=== PATIENT | female | born 1985 | race American Indian/Alaskan Native ===

== ENCOUNTER 2017-12-21 10:51 | Emergency (ER) | payer MEDICAID ==
[2017-12-21 11:59] LABS: Bilirubin,Urine NEG (Negative); Blood,Urine MOD (Negative); Color,Urine Yellow (Yellow); Mucus,Urine FEW /HPF; Protein,Urine <15 mg/dL mg/dL (Negative); Urobilinogen,Urine < 2.0 mg/dL (<2.0)
[2017-12-21 12:00] LABS: HCG Qualitative,Urine Negative (Negative)
--- NOTE | 2017-12-21 13:43 | Emergency Department Report ---
ED Female HPI - General Chief complaint: Urogenital-Female Stated complaint: VAGINAL BLEEDING/ Source: patient Mode of arrival: Ambulatory Limitations: No Limitations - History of Present Illness Initial comments: 32-year-old female (denies hypertension as per previous workup and she has a hx of psychosis as per medical record review) presents to the Hospital complains with concerns of . Patient had a menstrual cycle at the end of last month then had 2 days of bleeding starting December 18. early for her period. She states bleeding was heavy at that time. She has lower abdominal pain that felt like "something was moving around". Now all symptoms have resolved. Patient denies nausea, vomiting, dysuria, vaginal bleeding, or fever at this time. - Related Data Previous Rx's Medication Instructions Recorded Last Taken Type Triamter/Hctz 37.5-25 mg 1 tab PO QDAY #30 tablet 04/05/14 03/08/15 05:00 Rx [Maxzide-25] Allergies Allergy/AdvReac Type Severity Reaction Status Date / Time No Known Allergies Allergy Verified 03/26/15 18:30 ED Review of Systems ROS: Stated complaint: VAGINAL BLEEDING/ Other details as noted in HPI Comment: All other systems reviewed and negative ED Past Medical Hx - Past Medical History Previous Medical History?: Yes Hx Hypertension: Yes Hx Liver Disease: Yes - Surgical History Past Surgical History?: Yes Additional Surgical History: x 3. tubal ligation - Social History Smoking Status: Current Every Day Smoker Substance Use Type: Alcohol - Medications Home Medications: Home Medications Medication Instructions Recorded Confirmed Last Taken Type Triamter/Hctz 37.5-25 mg 1 tab PO QDAY #30 tablet 04/05/14 03/26/15 03/08/15 05: 00 Rx [Maxzide-25] ED Physical Exam - General Limitations: No Limitations - Other Other exam information: General: No limitations, patient is alert in no acute distress Head exam: Atraumatic, normocephalic Eyes exam: Normal appearance, pupils equal reactive to light, extraocular movements intact ENT: Moist mucous membrane, normal oropharynx Neck exam: Normal inspection, full range of motion, no meningismus nontender Respiratory exam: Clear to auscultation bilateral, no wheezes, rales, crackles Cardiovascular: Normal rate and rhythm, normal heart sounds Abdomen: Soft, nondistended, and nontender, with normal bowel sounds, no rebound, or guarding Extremity: Full range of motion normal inspection no deformity Back: Normal Inspection, full range of motion, no tenderness Neurologic: Alert, oriented x3, cranial nerves intact, no motor or sensory deficit Psychiatric: normal affect, normal mood Skin: Warm, dry, intact ED Course Vital Signs 12/21/17 12/21/17 11:22 13:40 Temperature 98.2 F 98.8 F Pulse Rate 113 H 96 H Respiratory 20 16 Rate Blood Pressure 150/97 O2 Sat by Pulse 99 99 Oximetry ED Medical Decision Making - Medical Decision Making patient is not having symptoms at this time She is not UA negative for infection Patient's blood pressure elevated and outpatient follow-up will be advised - Differential Diagnosis gas pain, UTI, , fibroids, ovarian cyst Critical Care Time: No Critical care attestation.: If time is entered above; I have spent that time in minutes in the direct care of this critically ill patient, excluding procedure time. ED Disposition Clinical Impression: Irregular menses, Elevated blood pressure reading Disposition: TO HOME OR SELFCARE Is pt being admited?: No Does the pt Need Aspirin: No Instructions: Dysfunctional Uterine Bleeding (ED), How to Take a Blood Pressure (ED) Additional Instructions: Follow-up with your IRRIGATION TAX ASSESSOR COLLECTOR doctor or the IRRIGATION TAX ASSESSOR COLLECTOR doctor provide for further evaluation of your irregular menstrual cycle. Blood pressure is elevated in the Emergency department. Please monitor your blood pressure at home and follow up with her primary care doctor regarding treatment Referrals: AIMEE BUSCH MD [Staff Physician] - 3-5 Days (Primary care doctor) [facility] [Provider Group] - 3-5 Days (Primary care clinic) [facility] [Provider Group] - 3-5 Days (IRRIGATION TAX ASSESSOR COLLECTOR doctor) Time of Disposition: 14:01
[2017-12-21 13:45] VITALS: BP 150/97
== END 2017-12-21 14:05 | disposition home or self-care (01) ==
LOC: ED 10:51
DX: N92.6 Irregular menstruation, unspecified (principal); I10 Essential (primary) hypertension; F17.200 Nicotine dependence, unspecified, uncomplicated; Z98.51 Tubal ligation status
CPT/HCPCS: 81001; 81025; 99283

== ENCOUNTER 2018-06-17 09:42 | Emergency (ER) | payer MEDICAID ==
[2018-06-17 09:51] VITALS: BP 154/97
--- NOTE | 2018-06-17 10:09 | Emergency Department Report ---
Blank Doc - Documentation Documentation: Patient is a 33-year-old female who states she's been having some off and on spotting for the last month. Patient states she has had a tubal ligation 6 years ago but took a test last month because of the abnormal bleeding which was positive. Patient's tried to see her [facility]OUNTING ADMINISTRATIVE ASSISTANT but was turned away secondary to not having her Medicaid card. Patient is having some crampy lower abdominal discomfort. Patient has been afebrile. A focused physical exam patient's lungs and heart tones are within normal limits. Patient 's abdomen is obese soft and nontender. A serum test will be ordered as well as a urinalysis and the patient be reassessed.
[2018-06-17 10:41] LABS: Bacteria,Urine 1+ /HPF (Negative); Bilirubin,Urine NEG (Negative); Blood,Urine SM (Negative); Color,Urine Yellow (Yellow); Mucus,Urine FEW /HPF; Protein,Urine <15 mg/dL mg/dL (Negative); Urobilinogen,Urine < 2.0 mg/dL (<2.0)
--- NOTE | 2018-06-17 11:34 | Emergency Department Report ---
ED Female HPI - General Chief complaint: Abdominal Pain Stated complaint: STOMACH PAIN Time Seen by Provider: 06/17/18 10:04 Source: patient Mode of arrival: Ambulatory Limitations: No Limitations - History of Present Illness Initial comments: This is a 33-year-old female who reports intermittent vaginal bleeding for 1 month. Patient states she has had a tubal ligation 6 years ago. She took a home test 05/01 which was positive. She started bleeding a few days later and retook urine test which was negative. Patient's tried to see her [facility] ([facility]) but was turned away secondary to not having Medicaid card. Last menastural period 05/15/2018 lasted 2 days. Bleeding started again mid month. She admits to lower abdominal cramping and some nausea without vomiting. She denies vaginal bleeding or discharge, low back pain, or fever. MD Complaint: vaginal bleeding Onset/Timin -: month(s) Location: suprapubic Radiation: non-radiating Severity: mild Severity scale (0 -10): 3 Quality: cramping Consistency: intermittent Improves with: none Worsens with: none Are you Now?: No (Patient is unsure) Last Menstrual Period: 05/15/18 EDC: 02/19/19 Associated Symptoms: denies other symptoms - Related Data Sexually active: Yes : 3 Para: 3 A: 0 Previous Rx's Medication Instructions Recorded Last Taken Type Triamter/Hctz 37.5-25 mg 1 tab PO QDAY #30 tablet 04/05/14 03/08/15 05:00 Rx [Maxzide-25] Allergies Allergy/AdvReac Type Severity Reaction Status Date / Time No Known Allergies Allergy Verified 03/26/15 18:30 ED Review of Systems ROS: Stated complaint: STOMACH PAIN Other details as noted in HPI Constitutional: denies: chills, fever Respiratory: denies: cough, shortness of breath, wheezing Cardiovascular: denies: chest pain, palpitations Gastrointestinal: abdominal pain (lower abdominal cramping). denies: nausea, diarrhea Neurological: denies: headache, weakness, paresthesias Psychiatric: denies: anxiety, depression ED Past Medical Hx - Past Medical History Previous Medical History?: Yes Hx Hypertension: Yes Hx Liver Disease: Yes - Surgical History Past Surgical History?: Yes Additional Surgical History: x 3. tubal ligation - Social History Smoking Status: Current Every Day Smoker Substance Use Type: Alcohol - Medications Home Medications: Home Medications Medication Instructions Recorded Confirmed Last Taken Type Triamter/Hctz 37.5-25 mg 1 tab PO QDAY #30 tablet 04/05/14 03/26/15 03/08/15 05: 00 Rx [Maxzide-25] ED Physical Exam - General Limitations: No Limitations General appearance: alert, in no apparent distress, obese - Respiratory Respiratory exam: Present: normal lung sounds bilaterally. Absent: respiratory distress - Cardiovascular Cardiovascular Exam: Present: regular rate, normal rhythm. Absent: systolic murmur, diastolic murmur, rubs, gallop - GI/Abdominal GI/Abdominal exam: Present: soft, normal bowel sounds. Absent: distended, tenderness, guarding, rebound, rigid, organomegaly, mass - Neurological Exam Neurological exam: Present: alert, oriented X3 - Psychiatric Psychiatric exam: Present: normal affect, normal mood - Skin Skin exam: Present: warm, dry, intact, normal color. Absent: rash ED Course Vital Signs 06/17/18 09:47 Temperature 98.8 F Pulse Rate 109 H Respiratory 18 Rate Blood Pressure 154/97 O2 Sat by Pulse 99 Oximetry ED Medical Decision Making - Lab Data Lab Results 06/17/18 06/17/18 Range/Units 10:11 10:13 HCG, Qual Negative (Negative) Urine Color Yellow (Yellow) Urine Turbidity Clear (Clear) Urine pH 5.0 (5.0-7.0) Ur Specific [place] 1.004 (1.003-1.030) Urine Protein <15 mg/dl (Negative) mg/dL Urine Glucose (UA) Neg (Negative) mg/dL Urine Ketones Neg (Negative) mg/dL Urine Blood Sm (Negative) Urine Nitrite Neg (Negative) Urine Bilirubin Neg (Negative) Urine Urobilinogen < 2.0 (<2.0) mg/dL Ur Leukocyte Esterase Neg (Negative) Urine WBC (Auto) 1.0 (0.0-6.0) /HPF Urine RBC (Auto) 1.0 (0.0-6.0) /HPF U Epithel Cells (Auto) < 1.0 (0-13.0) /HPF Urine Bacteria (Auto) 1+ (Negative) /HPF Urine Mucus Few /HPF - Medical Decision Making Patient was examined by me and Dr. Ambriz. Vitals are normal and patient is in no acute distress. Obtained labs. Small amount of blood in urine and negative hCG qual. Patient informed of results. Referral to [facility] ([facility]) for continuos of care. Plan discussed with patient to discharge home and treat outpatient. Patient discharged home in stable condition. Follow up with PCP in 2-3 days. Critical care attestation.: If time is entered above; I have spent that time in minutes in the direct care of this critically ill patient, excluding procedure time. ED Disposition Clinical Impression: Vaginal bleeding, Negative test, H/O dysfunctional uterine bleeding Disposition: TO HOME OR SELFCARE Is pt being admited?: No Does the pt Need Aspirin: No Condition: Stable Instructions: Dysfunctional Uterine Bleeding (ED) Additional Instructions: Follow up with [facility] ([facility]) for further evaluation. Referrals: [facility] [Provider Group] - 3-5 Days [facility] [Provider Group] - 3-5 Days Time of Disposition: 11:29 Print Language: PORTUGUESE
== END 2018-06-17 11:47 | disposition home or self-care (01) ==
LOC: ED 09:42
DX: N93.9 Abnormal uterine and vaginal bleeding, unspecified (principal); R10.30 Lower abdominal pain, unspecified; R11.0 Nausea; I10 Essential (primary) hypertension; F17.200 Nicotine dependence, unspecified, uncomplicated; Z98.51 Tubal ligation status
CPT/HCPCS: 36415; 81001; 84703; 99283